=== PATIENT | female | born 2000 | race Caucasian/White ===

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

== ENCOUNTER 2019-04-01 19:31 | Emergency (ER) | payer SELFPAY ==
[~2019-04-01] VITALS: Ht 167 cm; Wt 80.0 kg
[~2019-04-01 19:31] MED LIST changes: -CATHETER FLUSH 10 ML SYR IV PRN; +HYDR-3820 PO
[2019-04-01] MEDS ORDERED: NS IV 1000 ML 1,000 ML IV SCH (20:12)
[2019-04-01] MEDS ORDERED: ONDANSETRON 4 MG/2 ML (SDV) Z0FRAN IVP ONE (20:15)
[2019-04-01 20:19] LABS: BASOPHILS # (AUTO) 0.1 10^3/uL (0.0-0.1); BASOPHILS % (AUTO) 1 % (0-10); EOSINOPHILS # (AUTO) 0.1 10^3/uL (0.0-0.3); EOSINOPHILS % (AUTO) 1 % (0-10); HEMATOCRIT 36 % (35-52); HEMOGLOBIN 12.9 G/DL (11.5-16.0); LYMPHOCYTES # (AUTO) 1.7 X 10^3 (1.0-4.0); LYMPHOCYTES % (AUTO) 36 % (12-44); MEAN CORPUSCULAR HEMOGLOBIN 29 PG (25-34); MEAN CORPUSCULAR HGB CONC 35 G/DL (32-36); MEAN CORPUSCULAR VOLUME 82 FL (80-99); MEAN PLATELET VOLUME 9.8 FL (7.4-10.4); MONOCYTES # (AUTO) 0.7 X 10^3 (0.0-1.0); MONOCYTES % (AUTO) 14 % (0-12); NEUTROPHILS # (AUTO) 2.3 X 10^3 (1.8-7.8); NEUTROPHILS % (AUTO) 48 % (42-75); PLATELET COUNT 200 10^3/uL (130-400); RED CELL DISTRIBUTION WIDTH 13.2 % (10.0-14.5); WHITE BLOOD COUNT 4.7 10^3/uL (4.3-11.0)
[2019-04-01 20:27] LABS: BILIRUBIN,URINE NEGATIVE (NEGATIVE); CLARITY,URINE CLEAR; COLOR,URINE YELLOW; GLUCOSE, URINE (UA) NEGATIVE (NEGATIVE); KETONES,URINE TRACE (NEGATIVE); LEUKOCYTE ESTERASE ,URINE NEGATIVE (NEGATIVE); NITRITE,URINE NEGATIVE (NEGATIVE); PROTEIN,URINE NEGATIVE (NEGATIVE)
[2019-04-01 20:36] LABS: ALANINE AMINOTRANSFERASE 18 U/L (0-55); ALBUMIN 4.8 GM/DL (3.2-4.5); ALKALINE PHOSPHATASE 106 U/L (40-136); BILIRUBIN,TOTAL 0.7 MG/DL (0.1-1.0); BUN/CREATININE RATIO 11; CARBON DIOXIDE 19 MMOL/L (21-32); CHLORIDE 107 MMOL/L (98-107); CREATININE SERUM 0.74 MG/DL (0.60-1.30); GFR ESTIMATED > 60; GLUCOSE 98 MG/DL (70-105); POTASSIUM 3.6 MMOL/L (3.6-5.0); SODIUM 140 MMOL/L (135-145); TOTAL PROTEIN 8.4 GM/DL (6.4-8.2)
[2019-04-01 20:37] LABS: BACTERIA,URINE TRACE /HPF; SQUAMOUS EPITHELIAL CELL,UR 25-50 /HPF; WBC,URINE 0-2 /HPF
--- NOTE | 2019-04-01 21:22 | ED General ---
General Chief Complaint: Dizziness/Syncope Stated Complaint: DIZZINESS/NAUSEA/ABD PAIN History of Present Illness Date Seen by Provider: Apr 01, 2019 Time Seen by Provider: 19:55 Initial Comments 18-year-old female presents for right lower quadrant pain, 10 days late from her urine scheduled menstrual cycle, cough and fatigue. She was seen her primary care provider's office earlier today and had a negative urine test labs were sent but no results of been reviewed given to her. She has a history of polycystic ovary syndrome. Timing/Duration: 1 Week (1-2 weeks, intermittently) Associated Systoms: No Chest Pain; Cough; No Diaphoresis; Fever/Chills; No Headaches; Loss of Appetite, Malaise, Nausea/Vomiting; No Rash, No Seizure, No Shortness of Air, No Syncope, No Weakness Allergies and Home Medications Allergies Coded Allergies: No Known Drug Allergies (Unverified , 10/28/16) Home Medications Hydrocodone/Acetaminophen 1 Each Tablet, 1 TAB PO Q4H PRN for PAIN-MILD TO MODERATE Prescribed by: NICO MISHRA on 11/10/16 0858 Patient Home Medication List Home Medication List Reviewed: Yes Review of Systems Review of Systems Constitutional: see HPI, malaise EENTM: see HPI, nose congestion Respiratory: see HPI, cough Cardiovascular: no symptoms reported, see HPI Gastrointestinal: no symptoms reported, see HPI Genitourinary: no symptoms reported, see HPI : No (negative urine hCG) Expected Date of Delivery: Feb 28, 2019 Musculoskeletal: no symptoms reported, see HPI All Other Systems Reviewed Negative Unless Noted: Yes Past Ouqvfvh-Xyvrgz-Epgako Hx Past Med/Social Hx: Reviewed Nursing Past Med/Soc Hx Patient Social History Recent Foreign Travel: No Contact w/Someone Who Travel: No Recent Hopitalizations: No Immunizations Up To Date PED Vaccines UTD: Yes Seasonal Allergies Seasonal Allergies: No Past Medical History Reproductive Disorders: No Gall Bladder Disease Loss of Vision: Denies Hearing Impairment: Denies Psoriasis Physical Exam Vital Signs Capillary Refill : Height, Weight, BMI Height: 5'6.00" Weight: 192lbs. 0.0oz. 87.715292wq; 31.0 BMI Method: General Appearance: No Apparent Distress, WD/WN Eyes: Bilateral Eye Normal Inspection, Bilateral Eye PERRL, Bilateral Eye Abnormal EOM HEENT: PERRL/EOMI, TMs Normal, Normal ENT Inspection, Pharynx Normal, Moist Mucous Membranes Neck: Full Range of Motion, Normal Inspection, Non Tender, Supple; No Lymphadenopathy (L), No Lymphadenopathy (R) Respiratory: Chest Non Tender, Lungs Clear, Normal Breath Sounds Cardiovascular: Regular Rate, Rhythm, No Murmur, Normal Peripheral Pulses Gastrointestinal: Normal Bowel Sounds, Soft; No Distended, No Mass, No Rebound; Tenderness (right lower quadrant), Other (negative heeltap, obturator and psoas sign) Extremity: Normal Capillary Refill, Normal Inspection, Normal Range of Motion Neurologic/Psychiatric: Alert, Oriented x3, No Motor/Sensory Deficits, Normal Mood/Affect Skin: Normal Color, Warm/Dry; No Rash Progress/Results/Core Measures Suspected Sepsis SIRS Temperature: Pulse: Respiratory Rate: Laboratory Tests 04/01/19 20:05: White Blood Count 4.7 Blood Pressure / Mean: Laboratory Tests 04/01/19 20:05: Creatinine 0.74, Platelet Count 200, Total Bilirubin 0.7 Results/Orders Lab Results Laboratory Tests Test 04/01/19 19:56 04/01/19 20:05 Range/Units Urine Color YELLOW Urine Clarity CLEAR Urine pH 6.0 5-9 Urine Specific [place] >=1.030 1.016-1.022 Urine Protein NEGATIVE NEGATIVE Urine Glucose (UA) NEGATIVE NEGATIVE Urine Ketones TRACE H NEGATIVE Urine Nitrite NEGATIVE NEGATIVE Urine Bilirubin NEGATIVE NEGATIVE Urine Urobilinogen 1.0 < = 1.0 MG/DL Urine Leukocyte Esterase NEGATIVE NEGATIVE Urine RBC (Auto) NEGATIVE NEGATIVE Urine RBC NONE /HPF Urine WBC 0-2 /HPF Urine Squamous Epithelial Cells 25-50 H /HPF Urine Crystals NONE /LPF Urine Bacteria TRACE /HPF Urine Casts NONE /LPF Urine Mucus LARGE H /LPF Urine Culture Indicated NO White Blood Count 4.7 4.3-11.0 10^3/uL Red Blood Count 4.44 4.35-5.85 10^6/uL Hemoglobin 12.9 11.5-16.0 G/DL Hematocrit 36 35-52 % Mean Corpuscular Volume 82 80-99 FL Mean Corpuscular Hemoglobin 29 25-34 PG Mean Corpuscular Hemoglobin Concent 35 32-36 G/DL Red Cell Distribution Width 13.2 10.0-14.5 % Platelet Count 200 130-400 10^3/uL Mean Platelet Volume 9.8 7.4-10.4 FL Neutrophils (%) (Auto) 48 42-75 % Lymphocytes (%) (Auto) 36 12-44 % Monocytes (%) (Auto) 14 H 0-12 % Eosinophils (%) (Auto) 1 0-10 % Basophils (%) (Auto) 1 0-10 % Neutrophils # (Auto) 2.3 1.8-7.8 X 10^3 Lymphocytes # (Auto) 1.7 1.0-4.0 X 10^3 Monocytes # (Auto) 0.7 0.0-1.0 X 10^3 Eosinophils # (Auto) 0.1 0.0-0.3 10^3/uL Basophils # (Auto) 0.1 0.0-0.1 10^3/uL Sodium Level 140 135-145 MMOL/L Potassium Level 3.6 3.6-5.0 MMOL/L Chloride Level 107 98-107 MMOL/L Carbon Dioxide Level 19 L 21-32 MMOL/L Anion Gap 14 5-14 MMOL/L Blood Urea Nitrogen 8 7-18 MG/DL Creatinine 0.74 0.60-1.30 MG/DL Estimat Glomerular Filtration Rate > 60 BUN/Creatinine Ratio 11 Glucose Level 98 70-105 MG/DL Calcium Level 10.0 8.5-10.1 MG/DL Corrected Calcium 8.5-10.1 MG/DL Total Bilirubin 0.7 0.1-1.0 MG/DL Aspartate Amino Transf (AST/SGOT) 22 5-34 U/L Alanine Aminotransferase (ALT/SGPT) 18 0-55 U/L Alkaline Phosphatase 106 40-136 U/L Total Protein 8.4 H 6.4-8.2 GM/DL Albumin 4.8 H 3.2-4.5 GM/DL Thyroid Stimulating Hormone (TSH) 3.35 0.35-4.94 UIU/ML Micro Results Microbiology 04/01/19 Influenza Types A,B Antigen (JOSHUA) - Final, Complete My Orders Orders - FAUZIA AHUMADA Urine Bedside (04/01/19 19:34) Ua Culture If Indicated (04/01/19 19:34) Cbc With Automated Diff (04/01/19 20:12) Comprehensive Metabolic Panel (04/01/19 20:12) Ed Iv/Invasive Line Start (04/01/19 20:12) Ns Iv 1000 Ml (Sodium Chloride 0.9%) (04/01/19 20:12) Ondansetron Injection (Zofran Injectio (04/01/19 20:15) Influenza A And B Antigens (04/01/19 20:15) Thyroid Stimulating Hormone (04/01/19 20:05) Rx-Ondansetron Po (Rx-Zofran Po) (04/01/19 21:28) Medications Given in ED Current Medications Medications Dose Ordered Sig/Vickey Route Start Time Stop Time Status Last Admin Dose Admin Ondansetron HCl 4 mg ONCE ONCE IVP 04/01/19 20:15 04/01/19 20:16 DC 04/01/19 20:27 4 MG Vital Signs/I&O Capillary Refill : Progress Note : Time: 19:55 Progress Note Patient seen and evaluated, will obtain labs, normal saline 1 L per IV, and Zofran 4 mg IV. 2130 patient reports symptoms are improving. Pulse is 90-98. She has scheduled follow-up with Dr. Mendoza office. Discharge instructions and return precautions reviewed with her. All questions answered Departure Impression Primary Impression: Abdominal pain Qualified Codes: R10.84 - Generalized abdominal pain Additional Impressions: Upper respiratory disease PCOS (polycystic ovarian syndrome) Disposition: 01 HOME, SELF-CARE Condition: Improved Departure-Patient Inst. Decision time for Depature: 21:25 Referrals: JASVIR MENDEZ MD (PCP/Family) Primary Care Physician Patient Instructions: Polycystic Ovary Syndrome, Viral Upper Respiratory Infection, Adult (DC) Add. Discharge Instructions: Use Zofran every 6-8 hours as needed for nausea or vomiting. Alternate between Tylenol 650 mg and ibuprofen 600 mg every 4 hours for pain Increase water intake. 16 ounces every 2 hours while awake. Follow up with Dr. Nelson's office if symptoms are not improving or worsen. Return to the emergency department for new, urgent care needs. All discharge instructions reviewed with patient and/or family. Voiced und erstanding. FAUZIA AHUMADA Apr 01, 2019 21:22
[2019-04-01] MEDS ORDERED: RX-ONDANSETRON 4 MG ODT (ZOFRAN) PPK #4 PO STA (21:28)
== END 2019-04-01 21:33 | disposition home or self-care (01) ==
LOC: EDUNIT# 19:31 → ER 19:32
DX: R10.31 Right lower quadrant pain (principal); J39.9 Disease of upper respiratory tract, unspecified; E28.2 Polycystic ovarian syndrome
CPT/HCPCS: 36415; 80053; 81000; 84443; 84703; 85025; 87804; 96361; 96374

== ENCOUNTER 2020-03-11 18:20 | Emergency (ER) | payer SELFPAY ==
[~2020-03-11] VITALS: Ht 167 cm; Wt 97.6 kg
[~2020-03-11 18:20] MED LIST changes: +ACHYD1T PO; -HYDR-3820 PO
[2020-03-11 18:38] LABS: CLARITY,URINE CLEAR; COLOR,URINE YELLOW
[2020-03-11 18:39] LABS: BACTERIA,URINE TRACE /HPF; BILIRUBIN,URINE NEGATIVE (NEGATIVE); GLUCOSE, URINE (UA) NEGATIVE (NEGATIVE); KETONES,URINE NEGATIVE (NEGATIVE); LEUKOCYTE ESTERASE ,URINE TRACE (NEGATIVE); NITRITE,URINE NEGATIVE (NEGATIVE); PROTEIN,URINE NEGATIVE (NEGATIVE); SQUAMOUS EPITHELIAL CELL,UR 0-2 /HPF; WBC,URINE 0-2 /HPF
[2020-03-11] MEDS ORDERED: METOCLOPRAMIDE INJ 10 MG/2 ML (REGLAN) IVP STA (18:51)
[2020-03-11] MEDS ORDERED: PANTOPRAZOLE 40 MG (PROTONIX) VIAL IV STA (18:51)
[2020-03-11] MEDS ORDERED: diphenhydrAMINE 50 MG/ML INJ (BENADRYL) IVP STA (18:51)
--- NOTE | 2020-03-11 18:59 | ED GI ---
General Chief Complaint: Abdominal/GI Problems Stated Complaint: VOMITING Nursing Triage Note: has had crampy Rt sided abdominal pain x 1 week and vomiting. States smells make her gag. Sepsis Screen: No Definite Risk Source of Information: Patient History of Present Illness Date Seen by Provider: Mar 11, 2020 Time Seen by Provider: 18:28 Initial Comments 19-year-old female presenting with complaints of about 10 days of nausea and right-sided abdominal pain. She states that she has been vomiting and having a lot of acid as well. She is having gagging with smells. She initially thought she might have Covid and did a test after a telehealth visit with her PCP but it was negative. she had continued nausea and tried using Zofran pills but they were not staying down long enough to help and she was vomiting them back up. She denies any diarrhea or change in stools. She has no pain with urination. She has been trying to get and is due for period next week but took a home test today that was negative. She has a hx of PCOS and has had her gallbladder removed. She has had abdominal pain with n/v in the past and has had to get IVF for hydration before so she thought that she could just manage this at home but when it was not getting better and she was getting dizzy with standing and changing positions she decided to come to the ED tonight to be checked out. Allergies and Home Medications Allergies Coded Allergies: No Known Drug Allergies (Unverified , 10/28/16) Home Medications Metoclopramide HCl 10 Mg Tablet, 10 MG PO Q6H PRN for NAUSEA/VOMITING Prescribed by: SADE ALFREDO on 03/11/202036 Pantoprazole Sodium 20 Mg Tablet.dr, 20 MG PO DAILY Prescribed by: SADE ALFREDO on 03/11/202036 Patient Home Medication List Home Medication List Reviewed: Yes Review of Systems Review of Systems Constitutional: No chills; dizziness (with changing positions); No fever EENTM: No Symptoms Reported Respiratory: No Symptoms Reported Cardiovascular: No Symptoms Reported Gastrointestinal: See HPI Genitourinary: No Symptoms Reported Musculoskeletal: no symptoms reported Skin: no symptoms reported Psychiatric/Neurological: Anxiety Endocrine: No Symptoms Reported Past Uvaznno-Etbjze-Zbdzqq Hx Past Med/Social Hx: Reviewed Nursing Past Med/Soc Hx Patient Social History Alcohol Use: Denies Use Number of Drinks Today: AA Alcohol Beverage of Choice: Beer Recreational Drug Use: No Smoking Status: Never a Smoker 2nd Hand Smoke Exposure: No Recent Foreign Travel: No Contact w/Someone Who Travel: No Recent Infectious Disease Expo: No Recent Hopitalizations: No Physical Abuse: No Sexual Abuse: No Mistreated: No Fear: No Immunizations Up To Date Tetanus Booster (TDap): Unknown PED Vaccines UTD: Yes Seasonal Allergies Seasonal Allergies: No Past Medical History Surgeries: Yes (Woodman Teeth) Gallbladder Respiratory: No Cardiac: No Neurological: No Reproductive Disorders: Yes Female Reproductive Disorders: Polycystic Ovarian Dis Genitourinary: No Gastrointestinal: Yes Gall Bladder Disease Musculoskeletal: No Endocrine: Yes Hypothyroidsim HEENT: No Loss of Vision: Denies Hearing Impairment: Denies Cancer: No Psychosocial: Yes Anxiety, Depression Integumentary: Yes Psoriasis Blood Disorders: No Physical Exam Vital Signs Vital Signs - First Documented 03/11/20 18:33 Temp 37.2 Pulse 116 Resp 16 B/P (MAP) 146/93 (110) Pulse Ox 99 Capillary Refill : Less Than 3 Seconds Height/Weight/BMI Height: 5'6.00" Weight: 192lbs. 0.0oz. 87.339563bs; 34.00 BMI Method: General Appearance: WD/WN, no apparent distress HEENT: PERRL/EOMI, pharynx normal Neck: non-tender, full range of motion, supple, normal inspection Respiratory: chest non-tender, lungs clear, normal breath sounds, no respiratory distress, no accessory muscle use Cardiovascular: normal peripheral pulses, no murmur, tachycardia Gastrointestinal: normal bowel sounds, soft, no pulsatile mass; No distended, No guarding, No rebound; tenderness (epigastric and right upper quadrant); No mass Rectal: deferred Extremities: normal range of motion, non-tender, normal capillary refill Neurologic/Psychiatric: slate trimmer II-XII nml as tested, no motor/sensory deficits, alert, oriented x 3 Skin: normal color, warm/dry Images 1 - epigastric and RUQ abdominal pain with palpation Progress/Results/Core Measures Results/Orders Lab Results Laboratory Tests Test 03/11/20 18:27 03/11/20 19:25 Range/Units Urine Color YELLOW Urine Clarity CLEAR Urine pH 8.0 5-9 Urine Specific [place] 1.020 1.016-1.022 Urine Protein NEGATIVE NEGATIVE Urine Glucose (UA) NEGATIVE NEGATIVE Urine Ketones NEGATIVE NEGATIVE Urine Nitrite NEGATIVE NEGATIVE Urine Bilirubin NEGATIVE NEGATIVE Urine Urobilinogen 1.0 < = 1.0 MG/DL Urine Leukocyte Esterase TRACE H NEGATIVE Urine RBC (Auto) NEGATIVE NEGATIVE Urine RBC NONE /HPF Urine WBC 0-2 /HPF Urine Squamous Epithelial Cells 0-2 /HPF Urine Crystals NONE /LPF Urine Bacteria TRACE /HPF Urine Casts NONE /LPF Urine Mucus NEGATIVE /LPF Urine Culture Indicated NO White Blood Count 6.5 4.3-11.0 10^3/uL Red Blood Count 4.41 4.35-5.85 10^6/uL Hemoglobin 12.7 11.5-16.0 G/DL Hematocrit 37 35-52 % Mean Corpuscular Volume 84 80-99 FL Mean Corpuscular Hemoglobin 29 25-34 PG Mean Corpuscular Hemoglobin Concent 34 32-36 G/DL Red Cell Distribution Width 11.9 10.0-14.5 % Platelet Count 281 130-400 10^3/uL Mean Platelet Volume 10.0 7.4-10.4 FL Immature Granulocyte % (Auto) 0 % Neutrophils (%) (Auto) 62 42-75 % Lymphocytes (%) (Auto) 31 12-44 % Monocytes (%) (Auto) 6 0-12 % Eosinophils (%) (Auto) 1 0-10 % Basophils (%) (Auto) 1 0-10 % Neutrophils # (Auto) 4.0 1.8-7.8 X 10^3 Lymphocytes # (Auto) 2.0 1.0-4.0 X 10^3 Monocytes # (Auto) 0.4 0.0-1.0 X 10^3 Eosinophils # (Auto) 0.1 0.0-0.3 10^3/uL Basophils # (Auto) 0.0 0.0-0.1 10^3/uL Immature Granulocyte # (Auto) 0.0 0.0-0.1 10^3/uL Sodium Level 140 135-145 MMOL/L Potassium Level 4.1 3.6-5.0 MMOL/L Chloride Level 104 98-107 MMOL/L Carbon Dioxide Level 26 21-32 MMOL/L Anion Gap 10 5-14 MMOL/L Blood Urea Nitrogen 7 7-18 MG/DL Creatinine 0.60 0.60-1.30 MG/DL Estimat Glomerular Filtration Rate > 60 BUN/Creatinine Ratio 12 Glucose Level 108 H 70-105 MG/DL Calcium Level 10.0 8.5-10.1 MG/DL Corrected Calcium 9.6 8.5-10.1 MG/DL Total Bilirubin 0.3 0.1-1.0 MG/DL Aspartate Amino Transf (AST/SGOT) 17 5-34 U/L Alanine Aminotransferase (ALT/SGPT) 11 0-55 U/L Alkaline Phosphatase 101 40-136 U/L Total Protein 7.7 6.4-8.2 GM/DL Albumin 4.5 3.2-4.5 GM/DL Lipase 26 8-78 U/L My Orders Orders - SADE ALFREDO MD Ua Culture If Indicated (03/11/20 18:23) Urine Bedside (03/11/20 18:23) Comprehensive Metabolic Panel (03/11/20 18:51) Lipase (03/11/20 18:51) Ed Iv/Invasive Line Start (03/11/20 18:51) Cbc With Automated Diff (03/11/20 18:51) Ns Iv 1000 Ml (Sodium Chloride 0.9%) (03/11/20 19:00) Metoclopramide Injection (Reglan Injecti (03/11/20 18:51) Diphenhydramine Injection (Benadryl Inje (03/11/20 18:51) Pantoprazole Injection (Protonix Injecti (03/11/20 18:51) Vital Signs/I&O 03/11/20 18:33 Temp 37.2 Pulse 116 Resp 16 B/P (MAP) 146/93 (110) Pulse Ox 99 Blood Pressure Mean: 110 Progress Progress Note #1: Progress Note Urine test negative. UA has specific gravity 1.020. trace LE but no other finding for infection. Will check basic labs of CBC, CMP and Lipase. Give IVF for hydration, Protonix for gastritis, Reglan for n/v and Benadryl for nausea and to help prevent dystonic reaction from Reglan. Progress Note #2: Progress Note CBC and Chemistry are normal without any acute significant abnormality. Pt feeling better after meds and treatment in ED. Counseled on results and advised of follow up and return precautions. D/c on reglan and protonix and advised to check with pcp if continued concerns and may need EGD if symptoms persist or recur. If increased pain, fever, worsening symptoms may need CT. Departure Impression Primary Impression: Epigastric abdominal tenderness Qualified Codes: R10.816 - Epigastric abdominal tenderness Additional Impressions: Nausea & vomiting Qualified Codes: R11.14 - Bilious vomiting Abdominal bloating with cramps Gastritis Qualified Codes: K29.00 - Acute gastritis without bleeding Disposition: HOME, SELF-CARE Condition: Stable Departure-Patient Inst. Decision time for Depature: 20:37 Referrals: JASVIR MENDEZ MD (PCP/Family) Primary Care Physician Patient Instructions: Nausea and Vomiting, Adult (DC), Gastritis (DC), Gas and Bloating Add. Discharge Instructions: Follow a liquid or bland diet. Use the nausea medicine to help settle your stomach. Take the medicine for gastritis and stomach acid to help heal the lining of your stomach and help with bloating and gas. Check back with your primary provider if not improving or having continued concerns as they may want you to have an EGD or Scope to look at the lining of your stomach to see if you have any ulcers or issues with acid that are causing your symptoms. All discharge instructions reviewed with patient and/or family. Voiced understanding. Scripts Pantoprazole Sodium (Pantoprazole Sodium) 20 Mg Tablet.dr 20 MG PO DAILY for Abdominal Pain for 14 Days, #14 TAB 0 Refills Prov: SADE ALFREDO MD 03/11/20 Metoclopramide HCl (Metoclopramide HCl) 10 Mg Tablet 10 MG PO Q6H PRN for NAUSEA/VOMITING for 5 Days, #20 TAB 0 Refills Prov: SADE ALFREDO MD 03/11/20 SADE ALFREDO MD Mar 11, 2020 18:59
[2020-03-11] MEDS ORDERED: NS IV 1000 ML 1,000 ML IV SCH (19:00)
[2020-03-11 19:38] LABS: HEMATOCRIT 37 % (35-52); HEMOGLOBIN 12.7 G/DL (11.5-16.0); MEAN CORPUSCULAR HEMOGLOBIN 29 PG (25-34); MEAN CORPUSCULAR HGB CONC 34 G/DL (32-36); MEAN CORPUSCULAR VOLUME 84 FL (80-99); PLATELET COUNT 281 10^3/uL (130-400); WHITE BLOOD COUNT 6.5 10^3/uL (4.3-11.0)
[2020-03-11 19:40] LABS: BASOPHILS % (AUTO) 1 % (0-10); EOSINOPHILS % (AUTO) 1 % (0-10); LYMPHOCYTES % (AUTO) 31 % (12-44); MONOCYTES % (AUTO) 6 % (0-12); NEUTROPHILS % (AUTO) 62 % (42-75)
[2020-03-11 19:41] LABS: EOSINOPHILS # (AUTO) 0.1 10^3/uL (0.0-0.3); MONOCYTES # (AUTO) 0.4 X 10^3 (0.0-1.0)
[2020-03-11 19:56] LABS: ALKALINE PHOSPHATASE 101 U/L (40-136); BILIRUBIN,TOTAL 0.3 MG/DL (0.1-1.0); BUN/CREATININE RATIO 12; CARBON DIOXIDE 26 MMOL/L (21-32); CHLORIDE 104 MMOL/L (98-107); GFR ESTIMATED > 60; GLUCOSE 108 MG/DL (70-105); POTASSIUM 4.1 MMOL/L (3.6-5.0); SODIUM 140 MMOL/L (135-145)
[2020-03-11 19:57] LABS: ALANINE AMINOTRANSFERASE 11 U/L (0-55); ALBUMIN 4.5 GM/DL (3.2-4.5); LIPASE 26 U/L (8-78); TOTAL PROTEIN 7.7 GM/DL (6.4-8.2)
[2020-03-11] MEDS ORDERED: PANT20TA18 PO (20:37)
[2020-03-11] MEDS ORDERED: METO10TA3 PO (20:37)
[2020-03-11 20:43] VITALS: BP 122/70
== END 2020-03-11 20:43 | disposition home or self-care (01) ==
LOC: EDUNIT# 18:20 → ER FS 18:21
DX: R10.816 Epigastric abdominal tenderness (principal); R11.2 Nausea with vomiting, unspecified; R14.0 Abdominal distension (gaseous); K29.70 Gastritis, unspecified, without bleeding; Z20.828 Contact with and (suspected) exposure to other viral communicable diseases
CPT/HCPCS: 36415; 80053; 81000; 83690; 84703; 85025

== ENCOUNTER 2020-12-06 23:40 | Emergency (ER) | payer SELFPAY ==
[~2020-12-06] VITALS: Ht 167.7 cm; Wt 98.0 kg
[~2020-12-06 23:40] MED LIST changes: +MTC10T PO; +PANT20TA18 PO
[2020-12-07] MEDS ORDERED: NS IV 1000 ML 1,000 ML IV STA (00:15)
[2020-12-07] MEDS ORDERED: KETOROLAC 30 MG/ML VIAL IVP STA (00:15)
[2020-12-07] MEDS ORDERED: ONDANSETRON 4 MG/2 ML (SDV) Z0FRAN IVP ONE (00:15)
--- NOTE | 2020-12-07 00:17 | ED GU-Female ---
General Chief Complaint: - Reproductive Stated Complaint: ABNORMAL MENSTRUAL CYCLE SYM./CRAMPING/DIZZY Source: patient Exam Limitations: no limitations History of Present Illness Date Seen by Provider: Dec 06, 2020 Time Seen by Provider: 23:55 Initial Comments Here with report of abnormal bleeding tonight from menstrual cycle. She is concerned about ectopic . She has been trying to get . She does have normally irregular periods and she is currently only a few weeks out from her last menstrual period. Did have rather significant pain in the lower abdomen earlier that is consistent with her periods although a little bit worse. She did take 2 Midol and acetaminophen 500 and feels better. Timing/Duration: just prior to arrival (Approximately 1 hour ago) Severity/Quality: moderate Location: suprapubic Radiation: RLQ, LLQ, back Activities at Onset: none Sexual [place] History: less than 2 months ago, single partner Modifying Factors: Improves With Analgesics, Improves With Resting Associated Symptoms: abdominal pain; No dysuria, No fever/chills; lower back pain; No nausea/vomiting, No urinary frequency Allergies and Home Medications Allergies Coded Allergies: No Known Drug Allergies (Unverified , 10/28/16) Patient Home Medication List Home Medication List Reviewed: Yes Metoclopramide HCl (Metoclopramide HCl) 10 Mg Tablet, 10 MG PO Q6H PRN for NAUSEA/VOMITING Prescribed by: SADE ALFREDO on 03/11/202036 Pantoprazole Sodium (Pantoprazole Sodium) 20 Mg Tablet.dr, 20 MG PO DAILY Prescribed by: SADE ALFREDO on 03/11/202036 Review of Systems Review of Systems Constitutional: see HPI; No chills, No fever EENTM: no symptoms reported Respiratory: no symptoms reported Cardiovascular: No chest pain, No edema Gastrointestinal: abdominal pain; No nausea, No vomiting Genitourinary: denies dysuria : No LMP: Dec 06, 2020 Musculoskeletal: see HPI Psychiatric/Neurological: No Symptoms Reported Past Encjekr-Bpxfcr-Yydxyo Hx Patient Social History Tobacco Use?: Yes Tobacco type used: Cigarettes Smoking Status: Current Everyday Smoker Use of E-Cig and/or Vaping dev: No Substance use?: Yes Substance type: Marijuana Substance frequency: Couple times a week Alcohol Use?: Yes Alcohol type: Beer, Hard Liquor Alcohol Frequency: Several times a month Pt feels they are or have been: No Immunizations Up To Date Tetanus Booster (TDap): Unknown PED Vaccines UTD: Yes Influenza Vaccine Up-to-Date: No; Not Current Seasonal Allergies Seasonal Allergies: No Past Medical History Surgeries: Yes ([place] Teeth) Gallbladder Respiratory: No Cardiac: No Neurological: No Reproductive Disorders: Yes Female Reproductive Disorders: Polycystic Ovarian Dis Genitourinary: No Gastrointestinal: Yes Gall Bladder Disease Musculoskeletal: No Endocrine: Yes Hypothyroidsim HEENT: No Loss of Vision: Denies Hearing Impairment: Denies Cancer: No Psychosocial: Yes Anxiety, Depression Integumentary: Yes Psoriasis Blood Disorders: No Family Medical History Reviewed Nursing Family Hx Physical Exam Vital Signs Vital Signs - First Documented 12/06/20 23:49 Temp 37.2 Pulse 112 Resp 20 B/P (MAP) 166/112 (130) Pulse Ox 99 O2 Delivery Room Air Capillary Refill : Height, Weight, BMI Height: 5'6.00" Weight: 192lbs. 0.0oz. [id number]; 34.00 BMI Method: General Appearance: WD/WN, no apparent distress HEENT: PERRL/EOMI, pharynx normal Neck: full range of motion, supple Cardiovascular: regular rate, rhythm, no murmur Respiratory: lungs clear, normal breath sounds Gastrointestinal: soft, tenderness (Suprapubic mild) Back: normal inspection, no CVA tenderness, no vertebral tenderness Extremities: non-tender, normal inspection Neurologic/Psychiatric: alert, oriented x 3 Skin: normal color, warm/dry Progress/Results/Core Measures Suspected Sepsis SIRS Temperature: Pulse: Respiratory Rate: Laboratory Tests 12/07/20 00:15: White Blood Count 7.1 Blood Pressure / Mean: Laboratory Tests 12/07/20 00:15: Creatinine 0.78, Platelet Count 247, Total Bilirubin 0.5 Results/Orders Lab Results Laboratory Tests Test 12/07/20 00:15 Range/Units White Blood Count 7.1 4.3-11.0 10^3/uL Red Blood Count 4.40 3.80-5.11 10^6/uL Hemoglobin 13.2 11.5-16.0 g/dL Hematocrit 38 35-52 % Mean Corpuscular Volume 86 80-99 fL Mean Corpuscular Hemoglobin 30 25-34 pg Mean Corpuscular Hemoglobin Concent 35 32-36 g/dL Red Cell Distribution Width 11.9 10.0-14.5 % Platelet Count 247 130-400 10^3/uL Mean Platelet Volume 9.9 9.0-12.2 fL Immature Granulocyte % (Auto) 0 % Neutrophils (%) (Auto) 64 42-75 % Lymphocytes (%) (Auto) 26 12-44 % Monocytes (%) (Auto) 8 0-12 % Eosinophils (%) (Auto) 1 0-10 % Basophils (%) (Auto) 0 0-10 % Neutrophils # (Auto) 4.6 1.8-7.8 10^3/uL Lymphocytes # (Auto) 1.8 1.0-4.0 10^3/uL Monocytes # (Auto) 0.5 0.0-1.0 10^3/uL Eosinophils # (Auto) 0.1 0.0-0.3 10^3/uL Basophils # (Auto) 0.0 0.0-0.1 10^3/uL Immature Granulocyte # (Auto) 0.0 0.0-0.1 10^3/uL Sodium Level 139 135-145 MMOL/L Potassium Level 3.4 L 3.6-5.0 MMOL/L Chloride Level 106 98-107 MMOL/L Carbon Dioxide Level 24 21-32 MMOL/L Anion Gap 9 5-14 MMOL/L Blood Urea Nitrogen 7 7-18 MG/DL Creatinine 0.78 0.60-1.30 MG/DL Estimat Glomerular Filtration Rate 93 BUN/Creatinine Ratio 9 Glucose Level 116 H 70-105 MG/DL Calcium Level 9.6 8.5-10.1 MG/DL Corrected Calcium 9.3 8.5-10.1 MG/DL Total Bilirubin 0.5 0.1-1.0 MG/DL Aspartate Amino Transf (AST/SGOT) 14 5-34 U/L Alanine Aminotransferase (ALT/SGPT) 10 0-55 U/L Alkaline Phosphatase 84 40-136 U/L Total Protein 7.6 6.4-8.2 GM/DL Albumin 4.4 3.2-4.5 GM/DL Human Chorionic Gonadotropin, Quant < 5 <5 MIU/ML My Orders Orders - TRUPTI SHERMAN MD Cbc With Automated Diff (12/07/20 00:15) Comprehensive Metabolic Panel (12/07/20 00:15) Hcg,Quantitative (12/07/20 00:15) Ondansetron Injection (Zofran Injectio (12/07/20 00:15) Ns Iv 1000 Ml (Sodium Chloride 0.9%) (12/07/20 00:15) Ed Iv/Invasive Line Start (12/07/20 00:15) Ketorolac Injection (Toradol Injection) (12/07/20 00:15) Medications Given in ED Current Medications Medications Dose Ordered Sig/Vickey Route Start Time Stop Time Status Last Admin Dose Admin Ondansetron HCl 4 mg ONCE ONCE IVP 12/07/20 00:15 12/07/20 00:17 DC 12/07/20 00:31 4 MG Vital Signs/I&O 12/06/20 23:49 Temp 37.2 Pulse 112 Resp 20 B/P (MAP) 166/112 (130) Pulse Ox 99 O2 Delivery Room Air Capillary Refill : Progress Note : Progress Note Seen and evaluated. IV and labs ordered. Zofran 4 mg IV, normal saline 1 L bolus and Toradol 30 mg IV ordered. Monitor patient. 0132: Overall much better. No acute findings on labs and patient is not . She is comfortable going home and following up with her provider at [facility]. Discharged home with return precautions. Patient and family verbalized understanding of instructions and agreement with plan. Departure Impression Primary Impression: Dysfunctional uterine bleeding Disposition: HOME, SELF-CARE Condition: Improved Departure-Patient Inst. Decision time for Depature: 01:33 Referrals: JASVIR MENDEZ MD (PCP/Family) Primary Care Physician Patient Instructions: Heavy Periods (DC), Bleeding Between Periods Add. Discharge Instructions: All discharge instructions reviewed with patient and/or family. Voiced understanding. Follow-up with your provider for further evaluation regarding your dysfunctional uterine bleeding. Return for worse pain, fever, vomiting, weakness, breathing problems or other concerns as needed. You may take ibuprofen 600 mg every 8 hours as needed for pain. You may take Tylenol/acetaminophen 1000 mg every 6 hours as needed for pain. Do not exceed 4000 mg of acetaminophen in 24 hours. Drink plenty of fluids. Copy Copies To 1: TESSY VILLA MD, TIMOTHY D MD Dec 07, 2020 00:17
[2020-12-07 00:26] LABS: BASOPHILS % (AUTO) 0 % (0-10); EOSINOPHILS # (AUTO) 0.1 10^3/uL (0.0-0.3); EOSINOPHILS % (AUTO) 1 % (0-10); HEMATOCRIT 38 % (35-52); HEMOGLOBIN 13.2 g/dL (11.5-16.0); LYMPHOCYTES # (AUTO) 1.8 10^3/uL (1.0-4.0); LYMPHOCYTES % (AUTO) 26 % (12-44); MEAN CORPUSCULAR HEMOGLOBIN 30 pg (25-34); MEAN CORPUSCULAR HGB CONC 35 g/dL (32-36); MEAN CORPUSCULAR VOLUME 86 fL (80-99); MEAN PLATELET VOLUME 9.9 fL (9.0-12.2); MONOCYTES # (AUTO) 0.5 10^3/uL (0.0-1.0); MONOCYTES % (AUTO) 8 % (0-12); NEUTROPHILS # (AUTO) 4.6 10^3/uL (1.8-7.8); NEUTROPHILS % (AUTO) 64 % (42-75); PLATELET COUNT 247 10^3/uL (130-400); WHITE BLOOD COUNT 7.1 10^3/uL (4.3-11.0)
[2020-12-07 00:39] LABS: ALBUMIN 4.4 GM/DL (3.2-4.5); CHLORIDE 106 MMOL/L (98-107); POTASSIUM 3.4 MMOL/L (3.6-5.0); SODIUM 139 MMOL/L (135-145)
[2020-12-07 00:40] LABS: CALCIUM 9.6 MG/DL (8.5-10.1)
[2020-12-07 00:41] LABS: GLUCOSE 116 MG/DL (70-105); TOTAL PROTEIN 7.6 GM/DL (6.4-8.2)
[2020-12-07 00:42] LABS: CARBON DIOXIDE 24 MMOL/L (21-32)
[2020-12-07 00:43] LABS: BILIRUBIN,TOTAL 0.5 MG/DL (0.1-1.0)
[2020-12-07 00:45] LABS: ALKALINE PHOSPHATASE 84 U/L (40-136); CREATININE SERUM 0.78 MG/DL (0.60-1.30); GFR ESTIMATED 93
[2020-12-07 00:46] LABS: BUN/CREATININE RATIO 9
[2020-12-07 00:48] LABS: ALANINE AMINOTRANSFERASE 10 U/L (0-55)
[2020-12-07 02:40] VITALS: BP 121/70
== END 2020-12-07 01:49 | disposition home or self-care (01) ==
LOC: EDUNIT# 23:40 → ER 23:43
DX: N93.8 Other specified abnormal uterine and vaginal bleeding (principal); F17.210 Nicotine dependence, cigarettes, uncomplicated
CPT/HCPCS: 36415; 80053; 84702; 85025

== ENCOUNTER 2022-09-24 11:35 | Emergency (ER) | payer SELFPAY ==
[~2022-09-24] VITALS: Ht 167.7 cm; Wt 92.1 kg
[2022-09-24] MEDS ORDERED: LACTATED RINGERS 1,000 ML IV SCH (12:00)
[2022-09-24] MEDS ORDERED: NS 100 ML (IVPB) BAG IV ONE (12:00)
[2022-09-24] MEDS ORDERED: IOHEXOL 350 MG/ML 100 ML (OMNIPAQUE 350) VIAL IV ONE (12:00)
[2022-09-24] MEDS ORDERED: HOLD METFORMIN - RECEIVED CONTRAST 20 ML VIAL IV SCH (12:00)
[2022-09-24] MEDS ORDERED: ONDANSETRON 4 MG/2 ML (SDV) Z0FRAN IVP ONE (12:00)
[2022-09-24] MEDS ORDERED: KETOROLAC 30 MG/ML VIAL IVP ONE (12:00)
[2022-09-24 12:01] LABS: BASOPHILS # (AUTO) 0.1 10^3/uL (0.0-0.1); BASOPHILS % (AUTO) 1 % (0-10); EOSINOPHILS # (AUTO) 0.1 10^3/uL (0.0-0.3); EOSINOPHILS % (AUTO) 1 % (0-10); HEMATOCRIT 43 % (35-52); HEMOGLOBIN 14.9 g/dL (11.5-16.0); LYMPHOCYTES # (AUTO) 2.3 10^3/uL (1.0-4.0); LYMPHOCYTES % (AUTO) 36 % (12-44); MEAN CORPUSCULAR HEMOGLOBIN 30 pg (25-34); MEAN CORPUSCULAR HGB CONC 35 g/dL (32-36); MEAN CORPUSCULAR VOLUME 87 fL (80-99); MEAN PLATELET VOLUME 9.9 fL (9.0-12.2); MONOCYTES # (AUTO) 0.5 10^3/uL (0.0-1.0); MONOCYTES % (AUTO) 8 % (0-12); NEUTROPHILS # (AUTO) 3.5 10^3/uL (1.8-7.8); NEUTROPHILS % (AUTO) 54 % (42-75); PLATELET COUNT 269 10^3/uL (130-400); WHITE BLOOD COUNT 6.5 10^3/uL (4.3-11.0)
[2022-09-24 12:02] LABS: BILIRUBIN,URINE NEGATIVE (NEGATIVE); CLARITY,URINE CLOUDY; COLOR,URINE YELLOW; GLUCOSE, URINE (UA) NEGATIVE (NEGATIVE); KETONES,URINE TRACE (NEGATIVE); LEUKOCYTE ESTERASE ,URINE 2+ (NEGATIVE); NITRITE,URINE NEGATIVE (NEGATIVE); PROTEIN,URINE TRACE (NEGATIVE)
[2022-09-24 12:05] LABS: ALBUMIN 4.8 GM/DL (3.2-4.5); CHLORIDE 108 MMOL/L (98-107); POTASSIUM 3.6 MMOL/L (3.6-5.0); SODIUM 140 MMOL/L (135-145)
[2022-09-24 12:06] LABS: CALCIUM 9.7 MG/DL (8.5-10.1)
[2022-09-24 12:07] LABS: GLUCOSE 80 MG/DL (70-105)
--- NOTE | 2022-09-24 12:07 | ED Abdominal Pain ---
General Chief Complaint: Abdominal/GI Problems Stated Complaint: AB PAIN/VOMITING Nursing Triage Note: PT AMBULATE TO ROOM 07 WITHOUT DIFFICULTY WITH C/O N/V/D/CONSTIPATION, RIGHT LOWER ABD PAIN X3 DAYS. PT REPORTS BEING SEEN AT [facility] YESTERDAY. Source of Information: Patient Exam Limitations: No Limitations History of Present Illness Date Seen by Provider: Sep 24, 2022 Time Seen by Provider: 11:45 Initial Comments To ER by private vehicle accompanied by [id number] with reports of suprapubic abdominal pain nausea vomiting for 2 to 3 days. Denies fevers or chills. This began about 3 days ago when she was shopping with sudden onset severe left lower quadrant abdominal pain. History of PCOS. She then began vomiting and had chills. She was seen at [facility] yesterday and evaluated with urinalysis found to show pyuria. She was given a prescription for Macrobid however the pain has intensified and she is vomiting to the point that she is unable to tolerate p.o. And subsequently has not taken the Macrobid.. She is also had some whitish vaginal discharge for about 2 to 3 months. Currently she rates the pain a 6 out of 10. Timing/Duration: 2-3 Days Severity/Quality: Moderate Location: Suprapubic Radiation: No Radiation Activities at Onset: None Associated Symptoms: Fever/Chills, Nausea/Vomiting Allergies and Home Medications Allergies Coded Allergies: No Known Drug Allergies (Unverified , 10/28/16) Patient Home Medication List Home Medication List Reviewed: Yes Metoclopramide HCl (Metoclopramide HCl) 10 Mg Tablet, 10 MG PO Q6H PRN for NAUSEA/VOMITING Prescribed by: SADE ALFREDO on 03/11/202036 Metronidazole (Metronidazole) 500 Mg Tablet, 500 MG PO BID Prescribed by: CHOCO SINHA on 09/24/22 1255 Ondansetron (Ondansetron Odt) 4 Mg Tab.rapdis, 4 MG SL Q4H PRN for NAUSEA/VOMITING Prescribed by: CHOCO SINHA on 09/24/22 1253 Pantoprazole Sodium (Pantoprazole Sodium) 20 Mg Tablet.dr, 20 MG PO DAILY Prescribed by: SADE ALFREDO on 03/11/202036 Review of Systems Review of Systems Constitutional: see HPI, chills EENTM: No Symptoms Reported Respiratory: No Symptoms Reported Cardiovascular: No Symptoms Reported Gastrointestinal: See HPI Genitourinary: See HPI, Burning, Discharge Musculoskeletal: no symptoms reported Skin: no symptoms reported Psychiatric/Neurological: No Symptoms Reported, Emotional Problems Past Wyicywg-Jioyzs-Uqvmmk Hx Patient Social History Tobacco Use?: Yes Tobacco type used: Cigarettes Smoking Status: Current Everyday Smoker Smokeless Tobacco Frequency: Never a User Use of E-Cig and/or Vaping dev: No Use of E-Cig and/or Vaping Yonny: Never a User Substance use?: No Alcohol Use?: Yes Alcohol Frequency: Rarely Pt feels they are or have been: No Immunizations Up To Date Tetanus Booster (TDap): Unknown PED Vaccines UTD: Yes Seasonal Allergies Seasonal Allergies: No Past Medical History Surgeries: Yes ([place] Teeth) Gallbladder Respiratory: No Cardiac: No Neurological: No Reproductive Disorders: Yes Female Reproductive Disorders: Polycystic Ovarian Dis Genitourinary: No Gastrointestinal: Yes Gall Bladder Disease Musculoskeletal: No Endocrine: Yes Hypothyroidsim HEENT: No Loss of Vision: Denies Hearing Impairment: Denies Cancer: No Psychosocial: Yes Anxiety, Depression Integumentary: Yes Psoriasis Blood Disorders: No Physical Exam Vital Signs Vital Signs - First Documented 09/24/22 11:44 Temp 36.7 Pulse 102 Resp 19 B/P (MAP) 126/95 (105) O2 Delivery Room Air Capillary Refill : Less Than 3 Seconds Height/Weight/BMI Height: 5'6.00" Weight: 192lbs. 0.0oz. 87.218230zg; 32.00 BMI Method: General Appearance: WD/WN, no apparent distress, other (Heart rate 110 on arrival. Nontoxic-appearing but ill-appearing. Ambulates in on her own.) HEENT: PERRL/EOMI, normal ENT inspection Neck: non-tender, full range of motion Respiratory: no respiratory distress, no accessory muscle use Cardiovascular: tachycardia Gastrointestinal: normal bowel sounds, soft, tenderness (Suprapubic tenderness right greater than left but present both sides) Extremities: normal range of motion, non-tender Back: other (Mild CVA tenderness right greater than left) Neurologic/Psychiatric: alert, normal mood/affect Skin: normal color, warm/dry Progress/Results/Core Measures Results/Orders Lab Results Laboratory Tests Test 09/24/22 11:45 09/24/22 11:49 09/24/22 12:07 Range/Units Urine Color YELLOW Urine Clarity CLOUDY Urine pH 6.0 5-9 Urine Specific [place] >=1.030 1.016-1.022 Urine Protein TRACE H NEGATIVE Urine Glucose (UA) NEGATIVE NEGATIVE Urine Ketones TRACE H NEGATIVE Urine Nitrite NEGATIVE NEGATIVE Urine Bilirubin NEGATIVE NEGATIVE Urine Urobilinogen 1.0 < = 1.0 MG/DL Urine Leukocyte Esterase 2+ H NEGATIVE Urine RBC (Auto) NEGATIVE NEGATIVE Urine RBC NONE /HPF Urine WBC 5-10 H /HPF Urine Squamous Epithelial Cells 10-25 H /HPF Urine Crystals NONE /LPF Urine Bacteria TRACE /HPF Urine Casts NONE /LPF Urine Mucus SMALL H /LPF Urine Culture Indicated YES White Blood Count 6.5 4.3-11.0 10^3/uL Red Blood Count 4.96 3.80-5.11 10^6/uL Hemoglobin 14.9 11.5-16.0 g/dL Hematocrit 43 35-52 % Mean Corpuscular Volume 87 80-99 fL Mean Corpuscular Hemoglobin 30 25-34 pg Mean Corpuscular Hemoglobin Concent 35 32-36 g/dL Red Cell Distribution Width 12.5 10.0-14.5 % Platelet Count 269 130-400 10^3/uL Mean Platelet Volume 9.9 9.0-12.2 fL Immature Granulocyte % (Auto) 0 % Neutrophils (%) (Auto) 54 42-75 % Lymphocytes (%) (Auto) 36 12-44 % Monocytes (%) (Auto) 8 0-12 % Eosinophils (%) (Auto) 1 0-10 % Basophils (%) (Auto) 1 0-10 % Neutrophils # (Auto) 3.5 1.8-7.8 10^3/uL Lymphocytes # (Auto) 2.3 1.0-4.0 10^3/uL Monocytes # (Auto) 0.5 0.0-1.0 10^3/uL Eosinophils # (Auto) 0.1 0.0-0.3 10^3/uL Basophils # (Auto) 0.1 0.0-0.1 10^3/uL Immature Granulocyte # (Auto) 0.0 0.0-0.1 10^3/uL Sodium Level 140 135-145 MMOL/L Potassium Level 3.6 3.6-5.0 MMOL/L Chloride Level 108 H 98-107 MMOL/L Carbon Dioxide Level 24 21-32 MMOL/L Anion Gap 8 5-14 MMOL/L Blood Urea Nitrogen 8 7-18 MG/DL Creatinine 0.81 0.60-1.30 MG/DL Estimat Glomerular Filtration Rate 105 BUN/Creatinine Ratio 10 Glucose Level 80 70-105 MG/DL Calcium Level 9.7 8.5-10.1 MG/DL Corrected Calcium 8.5-10.1 MG/DL Total Bilirubin 0.6 0.1-1.0 MG/DL Aspartate Amino Transf (AST/SGOT) 12 5-34 U/L Alanine Aminotransferase (ALT/SGPT) 13 0-55 U/L Alkaline Phosphatase 84 40-136 U/L Total Protein 7.8 6.4-8.2 GM/DL Albumin 4.8 H 3.2-4.5 GM/DL Micro Results Microbiology 09/24/22 Wet Prep - Final, Complete My Orders Orders - CHOCO SINHA APRN Urine Bedside (09/24/22 11:50) Cbc With Automated Diff (09/24/22 11:50) Comprehensive Metabolic Panel (09/24/22 11:50) Ed Iv/Invasive Line Start (09/24/22 11:50) Ua Culture If Indicated (09/24/22 11:50) Wet Prep (09/24/22 11:50) Chlam Dna Probe (09/24/22 11:50) Neisseria Gonorrhea Swab (09/24/22 11:50) Ketorolac Injection (Toradol Injection) (09/24/22 12:00) Ondansetron Injection (Zofran Injectio (09/24/22 12:00) Lactated Ringers (Lr 1000 Ml Iv Solution (09/24/22 12:00) Ct Abdomen/Pelvis W (09/24/22 11:58) Iohexol Injection (Omnipaque 350 Mg/Ml 1 (09/24/22 12:00) Received Contrast (Hold Metformin- Contr (09/24/22 12:00) Ns (Ivpb) (Sodium Chloride 0.9% Ivpb Bag (09/24/22 12:00) Urine Culture (09/24/22 11:45) Ceftriaxone Iv/Im (Rocephin Iv/Im) (09/24/22 13:00) Metronidazole Tablet (Flagyl Tablet) (09/24/22 13:00) Fentanyl Inj (Sublimaze Injection) (09/24/22 13:15) Medications Given in ED Current Medications Medications Dose Ordered Sig/Vickey Route Start Time Stop Time Status Last Admin Dose Admin Ceftriaxone Sodium 1000 mg/ Sodium Chloride 50 ml @ 100 mls/hr ONCE ONCE IV 09/24/22 13:00 09/24/22 13:29 09/24/22 13:13 100 MLS/HR Fentanyl Citrate 50 mcg ONCE ONCE IVP 09/24/22 13:15 09/24/22 13:16 DC 09/24/22 13:13 50 MCG Iohexol 100 ml ONCE ONCE IV 09/24/22 12:00 09/24/22 12:02 DC 09/24/22 12:08 80 ML Ketorolac Tromethamine 15 mg ONCE ONCE IVP 09/24/22 12:00 09/24/22 12:01 DC 09/24/22 12:03 15 MG Metronidazole 500 mg ONCE ONCE PO 09/24/22 13:00 09/24/22 13:01 DC 09/24/22 13:13 500 MG Ondansetron HCl 8 mg ONCE ONCE IVP 09/24/22 12:00 09/24/22 12:01 DC 09/24/22 12:03 8 MG Sodium Chloride 100 ml ONCE ONCE IV 09/24/22 12:00 09/24/22 12:02 DC 09/24/22 12:09 80 ML Vital Signs/I&O 09/24/22 11:44 Temp 36.7 Pulse 102 Resp 19 B/P (MAP) 126/95 (105) O2 Delivery Room Air Blood Pressure Mean: 105 Departure Communication (Admissions) Family Conversation NAME: DELMAR SUN MED REC#: [id number] PT STATUS: REG ER : 2000 PHYSICIAN: CHOCO SINHA APRN ADMIT DATE: 09/24/22/ER Draft Date of Exam:09/24/22 CT ABDOMEN/PELVIS W EXAMINATION: CT abdomen and pelvis with intravenous contrast. TECHNIQUE: Multiple contiguous axial images were obtained through the abdomen and pelvis after the uneventful administration of intravenous contrast. All CT scans use one or more of the following dose optimizing techniques: automated exposure control, MA and/or KvP adjustment based on patient size and exam type or iterative reconstruction. HISTORY: Right lower quadrant pain. COMPARISON: 07/17/2017. FINDINGS: Limited views of the lower thorax are unremarkable. The liver is normal without focal lesion. There is no biliary ductal dilation. Gallbladder is normal. Pancreas is normal. Spleen is normal. Adrenal glands are normal. The kidneys are normal. There is no hydronephrosis. Urinary bladder is normal. Bowel is normal in caliber without obstruction or inflammation. The appendix is normal. No free fluid or air. No abdominal or pelvic lymphadenopathy. Aorta is normal in caliber without aneurysm. There are no suspicious osseus lesions. IMPRESSION: Normal CT abdomen and pelvis. Dictated on workstation # [id number] Dict: 09/24/22 1239 Trans: 09/24/22 1243 [id number] Interpreted by: KARMA SANZ MD Electronically signed by: We will have her self swab to obtain sample for wet prep gonorrhea chlamydia. 1249-CT is unremarkable. Normal appendix. Normal ovaries. CBC reviewed and shows normal white count hemoglobin platelets. Chemistry reviewed showing normal electrolytes renal and hepatic function. Urinalysis does show a mild pyuria with 5-10 whites. Rocephin gonorrhea swab will take a few days to come back. Wet prep results pending. Impression Primary Impression: UTI (urinary tract infection) Additional Impressions: Nausea & vomiting Lower abdominal pain Bacterial vaginosis Disposition: 01 HOME, SELF-CARE Condition: Stable Departure-Patient Inst. Decision time for Depature: 12:51 Referrals: [facility] (PCP/Family) Primary Care Physician Patient Instructions: Bacterial Vaginosis (DC), Urinary Tract Infection, Adult ED Add. Discharge Instructions: 1. Nausea medication as needed. Continue the antibiotics. Return to ER for any worsening. See your doctor next week for recheck. All discharge instructions reviewed with patient and/or family. Voiced understanding. Scripts Metronidazole (Metronidazole) 500 Mg Tablet 500 MG PO BID, #14 TAB 0 Refills Prov: CHOCO SINHA APRN 09/24/22 Ondansetron (Ondansetron Odt) 4 Mg Tab.rapdis 4 MG SL Q4H PRN for NAUSEA/VOMITING, #30 TAB . Prov: CHOCO SINHA APRN 09/24/22 CHOCO SINHA APRN Sep 24, 2022 12:07
[2022-09-24 12:08] LABS: TOTAL PROTEIN 7.8 GM/DL (6.4-8.2)
[2022-09-24 12:09] LABS: BILIRUBIN,TOTAL 0.6 MG/DL (0.1-1.0); CARBON DIOXIDE 24 MMOL/L (21-32)
[2022-09-24 12:09] LABS: BACTERIA,URINE TRACE /HPF
[2022-09-24 12:11] LABS: ALKALINE PHOSPHATASE 84 U/L (40-136); CREATININE SERUM 0.81 MG/DL (0.60-1.30); GFR ESTIMATED 105
[2022-09-24 12:12] LABS: BUN/CREATININE RATIO 10
[2022-09-24 12:14] LABS: ALANINE AMINOTRANSFERASE 13 U/L (0-55)
--- NOTE | 2022-09-24 12:44 | Diagnostic Imaging Report ---
EXAMINATION: CT abdomen and pelvis with intravenous contrast. TECHNIQUE: Multiple contiguous axial images were obtained through the abdomen and pelvis after the uneventful administration of intravenous contrast. All CT scans use one or more of the following dose optimizing techniques: automated exposure control, MA and/or KvP adjustment based on patient size and exam type or iterative reconstruction. HISTORY: Right lower quadrant pain. COMPARISON: 07/17/2017. FINDINGS: Limited views of the lower thorax are unremarkable. The liver is normal without focal lesion. There is no biliary ductal dilation. Gallbladder is normal. Pancreas is normal. Spleen is normal. Adrenal glands are normal. The kidneys are normal. There is no hydronephrosis. Urinary bladder is normal. Bowel is normal in caliber without obstruction or inflammation. The appendix is normal. No free fluid or air. No abdominal or pelvic lymphadenopathy. Aorta is normal in caliber without aneurysm. There are no suspicious osseus lesions. IMPRESSION: Normal CT abdomen and pelvis. Dictated by: Dictated on workstation # [id number]
[2022-09-24] MEDS ORDERED: ONDA4TAB11 SL ×2 (12:52→12:53)
[2022-09-24] MEDS ORDERED: METR-145 PO (12:55)
[2022-09-24] MEDS ORDERED: metroNIDAZOLE 500 MG (FLAGYL) TAB PO ONE (13:00)
[2022-09-24] MEDS ORDERED: cefTRIAXone IV/IM 1,000 MG in NS (IVPB) 50 ML IV ONE (13:00)
[2022-09-24] MEDS ORDERED: fentaNYL INJ 100 MCG/2 ML AMP IVP ONE (13:15)
[2022-09-24 13:47] VITALS: BP 116/79
== END 2022-09-24 13:46 | disposition home or self-care (01) ==
LOC: EDUNIT# 11:35 → ER 11:38
DX: N39.0 Urinary tract infection, site not specified (principal); N76.0 Acute vaginitis; R11.2 Nausea with vomiting, unspecified; F17.210 Nicotine dependence, cigarettes, uncomplicated; Z28.310 Unvaccinated for COVID-19
CPT/HCPCS: 36415; 74177; 80053; 81000; 84703; 85025; 87088; 87210; 87491; 87591

== ENCOUNTER 2022-11-09 14:04 | Emergency (ER) | payer SELFPAY ==
[~2022-11-09] VITALS: Ht 175 cm; Wt 92.1 kg
[~2022-11-09 14:04] MED LIST changes: +METR-145 PO; +ONDA4TAB11 SL
[2022-11-09] MEDS ORDERED: LORazepam INJ 2 MG/ML (ATIVAN) VIAL IVP STA (14:22)
--- NOTE | 2022-11-09 14:29 | ED Cardiac General ---
History of Present Illness General Chief Complaint: Chest Pain Stated Complaint: SOB | Source: patient Exam Limitations: no limitations History of Present Illness Date Seen by Provider: Nov 09, 2022 Time Seen by Provider: 14:22 Initial Comments 21-year-old female with past medical history of asthma coming in due to shortnes s of breath. Started yesterday, nothing really seems to make it better or worse. She is tried an albuterol inhaler which did not really help. Has a mild cough, not really bringing anything up. Started having chest pain this morning as well. Denies any prior history of DVT or PE, no lower extremity swelling or pain, no hemoptysis, no recent surgery, does not take any hormones, and otherwise no fever, nausea, vomiting, weakness, numbness, or any other concerns. Allergies and Home Medications Allergies Coded Allergies: No Known Drug Allergies (Unverified , 10/28/16) Patient Home Medication List Home Medication List Reviewed: Yes Metoclopramide HCl (Metoclopramide HCl) 10 Mg Tablet, 10 MG PO Q6H PRN for NAUSEA/VOMITING Prescribed by: SADE ALFREDO on 03/11/202036 Metronidazole (Metronidazole) 500 Mg Tablet, 500 MG PO BID Prescribed by: CHOCO SINHA on 09/24/22 1255 Ondansetron (Ondansetron Odt) 4 Mg Tab.rapdis, 4 MG SL Q4H PRN for NAUSEA/VOMITING Prescribed by: CHOCO SINHA on 09/24/22 1253 Pantoprazole Sodium (Pantoprazole Sodium) 20 Mg Tablet.dr, 20 MG PO DAILY Prescribed by: SADE ALFREDO on 03/11/202036 Review of Systems Review of Systems Constitutional: No fever EENTM: No Symptoms Reported Respiratory: See HPI Cardiovascular: See HPI Gastrointestinal: No Symptoms Reported Genitourinary: No Symptoms Reported Musculoskeletal: no symptoms reported Past Tsbklol-Svxmet-Efhoro Hx Patient Social History Tobacco Use?: Yes Tobacco type used: Cigarettes Smoking Status: Light Tobacco Smoker Use of E-Cig and/or Vaping dev: Yes E-Cig or Vaping type used: Nicotine Use of E-Cig and/or Vaping Yonny: Former User Substance use?: Yes Substance type: Caffeine, Nicotine Alcohol Use?: Yes Alcohol Frequency: Rarely Immunizations Up To Date Tetanus Booster (TDap): Unknown PED Vaccines UTD: Yes Influenza Vaccine Up-to-Date: No; Not Current Seasonal Allergies Seasonal Allergies: No Past Medical History Surgery/Hospitalization HX: ASTHMA, DEPRESSION, TACHYCARDIA, BRADYCARDIA GB Surgeries: Yes ([place]) Gallbladder Respiratory: No Cardiac: No Neurological: No Reproductive Disorders: Yes Female Reproductive Disorders: Polycystic Ovarian Dis Genitourinary: No Gastrointestinal: Yes Gall Bladder Disease Musculoskeletal: No Endocrine: Yes Hypothyroidsim HEENT: No Loss of Vision: Denies Hearing Impairment: Denies Cancer: No Psychosocial: Yes Anxiety, Depression Integumentary: Yes Psoriasis Blood Disorders: No Physical Exam Vital Signs Vital Signs - First Documented 11/09/22 14:15 Temp 37.3 Pulse 87 Resp 20 B/P (MAP) 120/87 (98) Pulse Ox 98 Capillary Refill : Height, Weight, BMI Height: 5'6.00" Weight: 192lbs. 0.0oz. [id number]; 32.00 BMI Method: General Appearance: No Apparent Distress, WD/WN HEENT: PERRL/EOMI, Normal ENT Inspection, Pharynx Normal Neck: Full Range of Motion, Normal Inspection, Non Tender, Supple Respiratory: Chest Non Tender, Lungs Clear, Normal Breath Sounds, No Accessory Muscle Use, No Respiratory Distress Cardiovascular: Regular Rate, Rhythm, No Edema, Normal Peripheral Pulses Gastrointestinal: Normal Bowel Sounds, Non Tender, Soft; No Distended, No Guarding Extremity: Normal Capillary Refill, Normal Inspection, Normal Range of Motion, Non Tender, No Calf Tenderness, No Pedal Edema Neurologic/Psychiatric: Alert, No Motor/Sensory Deficits, Normal Mood/Affect Skin: Normal Color, Warm/Dry Progress/Results/Core Measures Results/Orders Lab Results Laboratory Tests Test 11/09/22 14:20 11/09/22 14:34 Range/Units White Blood Count 5.3 4.3-11.0 10^3/uL Red Blood Count 4.68 3.80-5.11 10^6/uL Hemoglobin 14.0 11.5-16.0 g/dL Hematocrit 40 35-52 % Mean Corpuscular Volume 86 80-99 fL Mean Corpuscular Hemoglobin 30 25-34 pg Mean Corpuscular Hemoglobin Concent 35 32-36 g/dL Red Cell Distribution Width 12.2 10.0-14.5 % Platelet Count 258 130-400 10^3/uL Mean Platelet Volume 10.1 9.0-12.2 fL Immature Granulocyte % (Auto) 0 % Neutrophils (%) (Auto) 58 42-75 % Lymphocytes (%) (Auto) 32 12-44 % Monocytes (%) (Auto) 8 0-12 % Eosinophils (%) (Auto) 1 0-10 % Basophils (%) (Auto) 1 0-10 % Neutrophils # (Auto) 3.1 1.8-7.8 10^3/uL Lymphocytes # (Auto) 1.7 1.0-4.0 10^3/uL Monocytes # (Auto) 0.4 0.0-1.0 10^3/uL Eosinophils # (Auto) 0.1 0.0-0.3 10^3/uL Basophils # (Auto) 0.0 0.0-0.1 10^3/uL Immature Granulocyte # (Auto) 0.0 0.0-0.1 10^3/uL Prothrombin Time 13.6 12.2-14.7 SEC INR Comment 1.0 0.8-1.4 Activated Partial Thromboplast Time 28 24-35 SEC Sodium Level 140 135-145 MMOL/L Potassium Level 3.9 3.6-5.0 MMOL/L Chloride Level 110 H 98-107 MMOL/L Carbon Dioxide Level 20 L 21-32 MMOL/L Anion Gap 10 5-14 MMOL/L Blood Urea Nitrogen 5 L 7-18 MG/DL Creatinine 0.70 0.60-1.30 MG/DL Estimat Glomerular Filtration Rate 125 BUN/Creatinine Ratio 7 Glucose Level 116 H 70-105 MG/DL Calcium Level 9.7 8.5-10.1 MG/DL Corrected Calcium 9.3 8.5-10.1 MG/DL Magnesium Level 2.0 1.6-2.4 MG/DL Total Bilirubin 0.4 0.1-1.0 MG/DL Aspartate Amino Transf (AST/SGOT) 21 5-34 U/L Alanine Aminotransferase (ALT/SGPT) 27 0-55 U/L Alkaline Phosphatase 82 40-136 U/L Troponin I < 0.028 <0.028 NG/ML Total Protein 7.6 6.4-8.2 GM/DL Albumin 4.5 3.2-4.5 GM/DL Influenza Type A (RT-PCR) Not Detected Not Detecte Influenza Type B (RT-PCR) Not Detected Not Detecte SARS-CoV-2 RNA (RT-PCR) Not Detected Not Detecte My Orders Orders - BENJAMIN OBANDO MD Cbc With Automated Diff (11/09/22 14:22) Magnesium (11/09/22 14:22) Chest 1 View, Ap/Pa Only (11/09/22 14:22) Ekg Tracing (11/09/22 14:22) Comprehensive Metabolic Panel (11/09/22 14:22) Protime With Inr (11/09/22 14:22) Partial Thromboplastin Time (11/09/22 14:22) O2 (11/09/22 14:22) Monitor-Rhythm Ecg Trace Only (11/09/22 14:22) Ed Iv/Invasive Line Start (11/09/22 14:22) Troponin I Logan (11/09/22 14:22) Ipratropium/Albuterol Inh Soln (Ipratrop (11/09/22 14:30) Lorazepam Injection (Ativan Injection) (11/09/22 14:22) Covid 19 Inhouse Test (11/09/22 14:22) Influenza A And B By Pcr (11/09/22 14:22) Medications Given in ED Current Medications Medications Dose Ordered Sig/Vickey Route Start Time Stop Time Status Last Admin Dose Admin Albuterol/ Ipratropium 3 ml ONCE ONCE INH 11/09/22 14:30 11/09/22 14:31 DC 11/09/22 14:40 3 ML Vital Signs/I&O 11/09/22 14:15 Temp 37.3 Pulse 87 Resp 20 B/P (MAP) 120/87 (98) Pulse Ox 98 Progress Progress Note : Progress Note 21-year-old female with above history coming in due to chest pain. ABCs were intact and vitals were stable on presentation. Physical exam reassuring with no acute abnormalities, specifically no clinical signs of a DVT. EKG ordered and interpreted by me showing no acute ischemic changes. An IV was placed and basic labs were obtained and were significant for negative troponin, normal creati nine, unremarkable white blood cell count. Chest x-ray ordered and interpreted by me showing no pneumothorax, no obvious pneumonia, normal cardiac silhouette. She is low risk for PE per Foster criteria and is PERC negative. Patient well- appearing, did receive Ativan here as well as a DuoNeb given her history of asthma. I believe she is stable for discharge with outpatient follow-up. She was sent home with strict return precautions. Initial ECG Impression Date: Nov 09, 2022 Initial ECG Impression Time: 14:24 Initial ECG Rate: 76 Initial ECG Rhythm: Normal Sinus Comment Narrow QRS, normal axis, no significant ST changes or T wave abnormalities. Diagnostic Imaging Diagonstic Imaging: Xray (chest) Comments NAME: DELMAR SUN MED REC#: [id number] PT STATUS: REG ER : 2000 PHYSICIAN: BENJAMIN OBANDO MD ADMIT DATE: 11/09/22/ER Draft Date of Exam:11/09/22 CHEST 1 VIEW, AP/PA ONLY INDICATION: Chest pain. TECHNIQUE: Frontal chest obtained at 02:51 p.m. FINDINGS: Heart and mediastinal silhouette are normal in appearance. The lungs are clear. There is no pneumothorax or pleural fluid. IMPRESSION: Negative chest. Dictated on workstation # [id number] Dict: 11/09/22 1510 Trans: 11/09/22 1514 [id number] Interpreted by: ZION ALCOCER MD Electronically signed by: Departure Impression Primary Impression: Dyspnea Qualified Codes: R06.02 - Shortness of breath Disposition: 01 HOME, SELF-CARE Condition: Stable Departure-Patient Inst. Decision time for Depature: 15:25 Referrals: [facility] (PCP/Family) Primary Care Physician Patient Instructions: Shortness of breath (dyspnea) Add. Discharge Instructions: Fortunately were not seeing any evidence of anything life-threatening at this time, specifically no obvious heart attack, blood clot, pneumonia, or anything else significant such as these. This could be related to asthma, please follow- up with your regular doctor if you are not seeing improvement in the next couple of days. Work/School Note: Family Work Note, Patient Received Medical Care In the Emergency Department On: Nov 09, 2022 Patient Will Be Able to Return to Work/School On: Nov 10, 2022 Work Release Form Date Seen in the Emergency Department: Nov 09, 2022 Return to Work: Nov 10, 2022 Restrictions: No Restrictions BENJAMIN OBANDO MD Nov 09, 2022 14:29
[2022-11-09 14:30] LABS: BASOPHILS % (AUTO) 1 % (0-10); EOSINOPHILS # (AUTO) 0.1 10^3/uL (0.0-0.3); EOSINOPHILS % (AUTO) 1 % (0-10); HEMATOCRIT 40 % (35-52); LYMPHOCYTES # (AUTO) 1.7 10^3/uL (1.0-4.0); LYMPHOCYTES % (AUTO) 32 % (12-44); MEAN CORPUSCULAR HEMOGLOBIN 30 pg (25-34); MEAN CORPUSCULAR HGB CONC 35 g/dL (32-36); MEAN CORPUSCULAR VOLUME 86 fL (80-99); MEAN PLATELET VOLUME 10.1 fL (9.0-12.2); MONOCYTES # (AUTO) 0.4 10^3/uL (0.0-1.0); MONOCYTES % (AUTO) 8 % (0-12); NEUTROPHILS # (AUTO) 3.1 10^3/uL (1.8-7.8); NEUTROPHILS % (AUTO) 58 % (42-75); PLATELET COUNT 258 10^3/uL (130-400); WHITE BLOOD COUNT 5.3 10^3/uL (4.3-11.0)
[2022-11-09] MEDS ORDERED: RT-Ipratropium/Albuterol NEB 3 ML VIAL INH ONE (14:30)
[2022-11-09 14:42] LABS: ALBUMIN 4.5 GM/DL (3.2-4.5); CHLORIDE 110 MMOL/L (98-107); POTASSIUM 3.9 MMOL/L (3.6-5.0); SODIUM 140 MMOL/L (135-145)
[2022-11-09 14:43] LABS: CALCIUM 9.7 MG/DL (8.5-10.1)
[2022-11-09 14:45] LABS: GLUCOSE 116 MG/DL (70-105); TOTAL PROTEIN 7.6 GM/DL (6.4-8.2)
[2022-11-09 14:46] LABS: BILIRUBIN,TOTAL 0.4 MG/DL (0.1-1.0); CARBON DIOXIDE 20 MMOL/L (21-32)
[2022-11-09 14:48] LABS: ALKALINE PHOSPHATASE 82 U/L (40-136); GFR ESTIMATED 125
[2022-11-09 14:49] LABS: BUN/CREATININE RATIO 7
[2022-11-09 14:51] LABS: ALANINE AMINOTRANSFERASE 27 U/L (0-55)
[2022-11-09 15:07] LABS: PROTHROMBIN TIME PATIENT 13.6 SEC (12.2-14.7)
--- NOTE | 2022-11-09 15:15 | Diagnostic Imaging Report ---
INDICATION: Chest pain. TECHNIQUE: Frontal chest obtained at 02:51 p.m. FINDINGS: Heart and mediastinal silhouette are normal in appearance. The lungs are clear. There is no pneumothorax or pleural fluid. IMPRESSION: Negative chest. Dictated by: Dictated on workstation # [id number]
[2022-11-09] MEDS ORDERED: dexAMETHasone INJ 10 MG/ML 1 ML VIAL IV ONE (15:30)
[2022-11-09 15:50] VITALS: BP 130/83
== END 2022-11-09 15:50 | disposition home or self-care (01) ==
LOC: EDUNIT# 14:04 → ER 14:05
DX: R06.00 Dyspnea, unspecified (principal); F17.210 Nicotine dependence, cigarettes, uncomplicated; F17.290 Nicotine dependence, other tobacco product, uncomplicated; Z20.822 Contact with and (suspected) exposure to COVID-19
CPT/HCPCS: 36415; 71045; 80053; 83735; 84484; 85025; 85610; 85730; 87636; 93005; 93041